=== PATIENT | male | born 1950 | race Caucasian/White ===

== ENCOUNTER 2023-04-17 11:40 | Outpatient (CLI) | payer MEDICARE, SELFPAY ==
[2023-04-17 11:51] VITALS: BMI 25.1
[2023-04-17 12:08] LABS: Hematocrit 57.9 % (42.0-52.0)
[2023-04-17 12:30] LABS: Hemoglobin 19.7 g/dL (14.1-18.0)
--- NOTE | 2023-04-17 14:18 | PC.NURSE ---
1200 - BLOOD DRAWN FROM LEFT AC USING BUTTERFLY NEEDLE TO CHECK HGB/HCT TO SEE IF PT NEEDED THERAPEUTIC PHLEBOTOMY.
== END 2023-04-17 13:25 | disposition home or self-care (01) ==
LOC: INF 11:44
PROVIDERS: PCP Family Medicine; Visit Provider Family Medicine
DX: E83.118 Other hemochromatosis (principal); R71.8 Other abnormality of red blood cells
CPT/HCPCS: 85014; 85018; 99195

== ENCOUNTER 2023-10-16 13:30 | Outpatient (CLI) | payer MEDICARE, SELFPAY ==
[2023-10-16 13:37] VITALS: BMI 25.1
--- NOTE | 2023-10-16 13:39 | PC.NURSE ---
Song9-abelino,tod collected labs via venipuncture stick with butterfly needle in right ac;will wait on labs for possible therapeutic phlebotomy if hgb>18 draw off 500ml.
[2023-10-16 14:03] LABS: Hematocrit 61.2 % (42.0-52.0); Hemoglobin 19.4 g/dL (14.1-18.0)
[2023-10-16 14:13] VITALS: BP 116/63; PULSE 83; RESP 18; O2SAT 94
[2023-10-16 14:45] VITALS: BP 113/64; PULSE 83; RESP 18; O2SAT 94
== END 2023-10-16 14:45 | disposition home or self-care (01) ==
LOC: INF 13:32
PROVIDERS: PCP Family Medicine; Visit Provider Family Medicine
DX: R71.8 Other abnormality of red blood cells (principal)
CPT/HCPCS: 36415; 85014; 85018; 99195

== ENCOUNTER 2023-10-30 08:51 | Outpatient (CLI) | payer MEDICARE, SELFPAY ==
[2023-10-30 08:58] VITALS: BMI 25.1
[2023-10-30 09:41] LABS: Hemoglobin 19.8 g/dL (14.1-18.0)
[2023-10-30 09:42] LABS: Hematocrit 60.6 % (42.0-52.0)
--- NOTE | 2023-10-30 12:33 | PC.NURSE ---
0950Del Stone from lab came for therapeutic phlebotomy 500ml for Hgb above 18. Hgb on todays H&H-19.8. 20g IV started by this RN in left ac. Only 415ml able to be drawn off. pt declined another IV to finish the 500ml. pt rescheduled for lab recheck in two weeks per MD order. BP post phlebotomy 116/69, HR 73. pt tolerated well. IV removed and coban applied.
== END 2023-10-30 10:50 | disposition home or self-care (01) ==
LOC: INF 08:53
PROVIDERS: PCP Family Medicine; Visit Provider Family Medicine
DX: R71.8 Other abnormality of red blood cells (principal)
CPT/HCPCS: 36415; 85014; 85018; 99195

== ENCOUNTER 2023-11-13 08:52 | Outpatient (CLI) | payer MEDICARE, SELFPAY ==
[2023-11-13 08:59] VITALS: BMI 25.1
[2023-11-13 09:24] LABS: Hematocrit 62.2 % (42.0-52.0)
[2023-11-13 09:38] LABS: Hemoglobin 19.5 g/dL (14.1-18.0)
[2023-11-13 09:55] VITALS: BP 130/72; PULSE 85; RESP 18; O2SAT 98
[2023-11-13 10:30] VITALS: BP 113/78; PULSE 75; RESP 18; O2SAT 98
== END 2023-11-13 10:30 | disposition home or self-care (01) ==
LOC: INF 08:53
PROVIDERS: PCP Family Medicine; Visit Provider Family Medicine
DX: R71.8 Other abnormality of red blood cells (principal)
CPT/HCPCS: 36415; 85014; 85018; 99195

== ENCOUNTER 2023-11-27 08:46 | Outpatient (CLI) | payer MEDICARE, SELFPAY ==
[2023-11-27 08:53] VITALS: BMI 25.1
[2023-11-27 09:36] LABS: Hemoglobin 18.8 g/dL (14.1-18.0)
[2023-11-27 09:55] VITALS: BP 114/69; PULSE 72; RESP 18; TEMP 36.6; O2SAT 98
[2023-11-27 10:25] VITALS: BP 111/62; PULSE 69; RESP 18; O2SAT 98
--- NOTE | 2023-11-27 11:08 | PC.NURSE ---
11/27/23 0850 Pt here today for lab check and have phlebotomy if needed. Venipuncture performed to pt's rt ac x 1 stick using a butterfly access needle and blood drawn for labs. Needle withdrawn and site secured with 2x2 gauze and coban. Will await results of labs to determine if phlebotomy is needed.
== END 2023-11-27 10:25 | disposition home or self-care (01) ==
LOC: INF 08:47
PROVIDERS: PCP Family Medicine; Visit Provider Family Medicine
DX: R71.8 Other abnormality of red blood cells (principal)
CPT/HCPCS: 36415; 85014; 85018; 99195

== ENCOUNTER 2023-12-20 09:17 | Outpatient (CLI) | payer MEDICARE, SELFPAY ==
[2023-12-20 09:33] VITALS: BMI 25.1
--- NOTE | 2023-12-20 09:37 | PC.NURSE ---
0937-COLLECTED LABS VIA VENIPUNCTURE STICK IN RIGHT AC WITH BUTTERFLY NEEDLE;PT TO WAIT ON LABS IF HGB >18 PT TO RECEIVE THERAPEUTIC PHLEBOTOMY TO DRAW OFF 500ML.
[2023-12-20 09:51] LABS: Hematocrit 54.1 % (42.0-52.0)
[2023-12-20 10:08] LABS: Hemoglobin 18.3 g/dL (14.1-18.0)
[2023-12-20 10:20] VITALS: BP 119/63; PULSE 73; RESP 18; O2SAT 97
[2023-12-20 10:50] VITALS: BP 104/58; PULSE 73; RESP 18; O2SAT 97
== END 2023-12-20 10:50 | disposition home or self-care (01) ==
LOC: INF 09:19
PROVIDERS: PCP Family Medicine; Visit Provider Family Medicine
DX: R71.8 Other abnormality of red blood cells (principal)
CPT/HCPCS: 36415; 85014; 85018

== ENCOUNTER 2024-01-10 08:44 | Outpatient (CLI) | payer MEDICARE, SELFPAY ==
[2024-01-10 08:48] VITALS: BMI 25.1
--- NOTE | 2024-01-10 08:51 | PC.NURSE ---
0851-collected labs via venipuncture stick in left ac with butterfly needle;will wait on results for possible therapeutic phlebotomy if hgb >18
[2024-01-10 09:02] LABS: Hematocrit 51.1 % (42.0-52.0); Hemoglobin 17.4 g/dL (14.1-18.0)
--- NOTE | 2024-01-10 09:05 | PC.NURSE ---
0905-pt d/c home no phlebotomy needed today pt hgb 17.4
== END 2024-01-10 09:05 | disposition home or self-care (01) ==
LOC: INF 08:45
PROVIDERS: PCP Family Medicine; Visit Provider Family Medicine
DX: R71.8 Other abnormality of red blood cells (principal)
CPT/HCPCS: 36415; 85014; 85018

== ENCOUNTER 2024-02-17 08:51 | Outpatient (CLI) | payer MEDICARE, SELFPAY ==
[2024-02-17 08:56] VITALS: BMI 25.1
--- NOTE | 2024-02-17 09:00 | PC.NURSE ---
SENT BLOOD WORK UP TO LAB FOR H/H CHECK. H/H REVIEWED AND PT DIDNT NEED PHLEBOTOMY AT THIS TIME
[2024-02-17 09:06] LABS: Hematocrit 54.2 % (42.0-52.0); Hemoglobin 17.8 g/dL (14.1-18.0)
--- NOTE | 2024-02-17 10:16 | PC.NURSE ---
0900 Patient here for possible therapeutic phlebotomy based on lab results; H&H collected via venipuncture to L AC x1 stick with butterfly needle. Patient tolerated well.
--- NOTE | 2024-02-17 10:17 | PC.NURSE ---
0935 Patient does not need therapeutic phlebotomy today based on lab results, Hgb 17.8, Hct 54.2. Patient discharged home/stable. Next appointment scheduled.
== END 2024-02-17 09:40 | disposition home or self-care (01) ==
LOC: INF 08:53
PROVIDERS: PCP Family Medicine; Visit Provider Family Medicine
DX: R71.8 Other abnormality of red blood cells (principal)
CPT/HCPCS: 36415; 85014; 85018

== ENCOUNTER 2024-03-20 09:23 | Outpatient (CLI) | payer MEDICARE, SELFPAY ==
[2024-03-20 09:31] VITALS: BMI 25.1
--- NOTE | 2024-03-20 09:41 | PC.NURSE ---
0941-s.haja,nurse truck striker collected labs via venipunture stick in right ac with butterfly needle.pt to wait on labs for possible therapeutic phlebotomy for hgb>18 to draw off 500ml
[2024-03-20 10:18] LABS: Hemoglobin 18.9 g/dL (14.1-18.0)
[2024-03-20 10:30] VITALS: BP 144/75; PULSE 74; RESP 18; TEMP 37.1; O2SAT 97
[2024-03-20 11:05] VITALS: BP 128/68; PULSE 63; RESP 18; O2SAT 97
== END 2024-03-20 11:05 | disposition home or self-care (01) ==
LOC: INF 09:25
PROVIDERS: PCP Family Medicine; Visit Provider Family Medicine
DX: Z00.00 Encounter for general adult medical examination without abnormal findings (principal)
CPT/HCPCS: 36415; 85014; 85018; 99195